=== PATIENT | female | born 1960 | race Caucasian/White ===

== ENCOUNTER 2017-04-01 13:01 | Emergency (ER) | payer OTHER ==
[2017-04-01 13:31] VITALS: BP 113/74
--- NOTE | 2017-04-01 13:42 | UC ---
Respiratory Complaint HPI - HPI Summary HPI Summary: 56 yo female with cough x week initially had URI symptoms now feels like it is his chest no CP or sob no ear ache - History of Current Complaint Chief Complaint: UCGeneralIllness Stated Complaint: SINUSES,CHEST YARELY Time Seen by Provider: 04/01/17 13:41 Hx Obtained From: Patient Onset/Duration: Gradual Onset, Lasting Hours, Lasting Weeks Severity Initially: Mild Severity Currently: Moderate Pain Scale Used: 0-10 Numeric Character: Cough: Productive Aggravating Factors: Nothing Alleviating Factors: Nothing Associated Signs And Symptoms: Positive: Nasal Congestion, Hoarseness, Sinus Discomfort - Allergies/Home Medications Allergies/Adverse Reactions: Allergies Allergy/AdvReac Type Severity Reaction Status Date / Time Indomethacin Allergy Vomiting Verified 04/01/17 13:22 Naproxen [From Naprosyn] Allergy Vomiting Verified 04/01/17 13:22 Tetracycline Allergy Anaphylatic Verified 04/01/17 13:22 Shock Home Medications: Home Medications Atorvastatin* [Lipitor 20 MG*] 20 mg BEDTIME 04/01/17 [History Confirmed ] Cholecalciferol TAB* [Vitamin D TAB*] 50,000 units WEEKLY 04/01/17 [History Confirmed 04/01/17] Omeprazole CAP* [Prilosec CAP* 20 MG] 20 mg BID 04/01/17 [History Confirmed ] buPROPion SR TAB* [Wellbutrin SR TAB*] 150 mg DAILY 04/01/17 [History Confirmed 04/01/17] PMH/Surg Hx/FS Hx/Imm Hx Previously Healthy: Yes Respiratory History: Bronchitis - Surgical History Surgical History: Yes Surgery Procedure, Year, and Place: C-spine surgery - Family History Known Family History: Positive: Cardiac Disease, Hypertension, Diabetes - Social History Alcohol Use: None Substance Use Type: None Smoking Status (MU): Current Every Day Smoker Type: Cigarettes Amount Used/How Often: 1 PPD - Immunization History Most Recent Influenza Vaccination: 2017 Review of Systems Constitutional: Negative Skin: Negative Eyes: Negative ENT: Nasal Discharge, Sinus Congestion Respiratory: Cough Cardiovascular: Negative Gastrointestinal: Negative Genitourinary: Negative Motor: Negative Neurovascular: Negative Musculoskeletal: Negative Neurological: Negative Psychological: Negative Is Patient Immunocompromised?: No All Other Systems Reviewed And Are Negative: Yes Physical Exam Triage Information Reviewed: Yes Appearance: Well-Appearing, No Pain Distress, Well-Nourished Vital Signs: Initial Vital Signs Temp 97.9 F 04/01/17 13:24 Pulse 80 04/01/17 13:24 Resp 16 04/01/17 13:24 BP 113/74 04/01/17 13:24 Pulse Ox 97 04/01/17 13:24 Vital Signs Reviewed: Yes Eyes: Positive: Conjunctiva Clear ENT: Positive: Hearing grossly normal, Nasal congestion, Nasal drainage Neck: Positive: Supple, Nontender Respiratory: Positive: Lungs clear, Normal breath sounds, No respiratory distress, No accessory muscle use Cardiovascular: Positive: RRR Abdomen Description: Positive: Nontender Bowel Sounds: Positive: Present Musculoskeletal: Positive: ROM Intact, No Edema Neurological: Positive: Alert Psychological Exam: Normal Skin Exam: Normal UC Diagnostic Evaluation - Laboratory O2 Sat by Pulse Oximetry: 97 - normal/not hypoxic Respiratory Course/Dx - Differential Dx/Diagnosis Provider Diagnoses: acute bronchitis Discharge - Discharge Plan Condition: Stable Disposition: HOME Prescriptions: Amoxicillin PO (*) [Amoxicillin 875 MG (*)] 875 mg PO BID #20 tab Patient Education Materials: Acute Bronchitis (ED) Referrals: Kassandra Vinson MD [Primary Care Provider] - 6 Days (if nto better) Additional Instructions: mucinex or robitussin
== END 2017-04-01 14:03 | disposition home or self-care (01) ==
LOC: UCCORT 13:01
DX: J20.9 Acute bronchitis, unspecified (principal); Z88.6 Allergy status to analgesic agent; Z88.3 Allergy status to other anti-infective agents; Z87.09 Personal history of other diseases of the respiratory system; F17.210 Nicotine dependence, cigarettes, uncomplicated
CPT/HCPCS: 99202; G0463